=== PATIENT | male | born 1965 | race Caucasian/White ===

== ENCOUNTER 2018-03-22 11:06 | Emergency (ER) | payer MEDICARE, MEDICAID ==
[2018-03-22 11:28] VITALS: BP 97/59
[2018-03-22] MEDS ORDERED: Sodium Chloride 0.9% 1,000 ML IV ONE ×2 (12:28→14:18)
[2018-03-22] MEDS ORDERED: Ondansetron 4 MG/2 ML SDV IVPUSH ONE (12:28)
[2018-03-22] MEDS ORDERED: HYDROmorphone 1 MG/ML Syringe IVPUSH ONE (12:28)
[2018-03-22] MEDS ORDERED: Sodium Chloride 0.9% 10 ML Syringe FLUSH PRN ×2 (12:28→13:42)
--- NOTE | 2018-03-22 12:50 | EDM.PDOC ---
ED HPI GENERAL MEDICAL PROBLEM - General Chief Complaint: Back Pain or Injury Stated Complaint: BACK PAIN Time Seen by Provider: 03/22/18 12:00 Source of Information: Reports: Patient History Limitations: Reports: No Limitations - History of Present Illness INITIAL COMMENTS - FREE TEXT/NARRATIVE: 52-year-old male presents for evaluation treatment of back pain. Patient has had chronic back pain and problems. First surgery was done 13 or [address] Conway. Reports surgery to L4-L5 and L5-S1. He reports a days ago he had surgery Dr. Koch at [facility] in [place]. States that the extended the cage, understanding this is now involves L3-L4. He reports pain radiating into the right leg. States the pain is in his right groin, right hip and his right knee. He states he feels that his right leg is swollen. He did have the pain prior to surgery feels that it is worse since having the surgery. He was in the hospital for surgery from March 14 to March 17. He states he did notify staff of the leg pain but was informed that this was residual from his surgery. He denies any fevers, nausea, vomiting. He reports chills and sweats. He denies any urinary or stool incontinence. Back Pain Score (Numeric/FACES): 9 - Related Data Allergies Allergy/AdvReac Type Severity Reaction Status Date / Time No Known Allergies Allergy Verified 08/24/16 04:47 Home Meds: Home Meds Aspirin [Adult Low Dose Aspirin EC] 81 mg PO DAILY 11/18/15 [History] ClonazePAM [KlonoPIN] 2 mg PO DAILY 11/18/15 [History] HYDROmorphone [Dilaudid] 2 - 4 mg PO Q6H 11/18/15 [History] Lisinopril 20 mg PO DAILY 11/18/15 [History] Metoprolol Succinate [Toprol XL] 200 mg PO DAILY 11/18/15 [History] Mirtazapine [Remeron] 30 mg PO BEDTIME 11/18/15 [History] atorvaSTATin [Lipitor] 20 mg PO BEDTIME 11/18/15 [History] traZODone HCl [Trazodone HCl] 50 mg PO DAILY 11/18/15 [History] Allopurinol [Zyloprim] 300 mg PO DAILY 08/24/16 [History] Furosemide 40 mg PO DAILY 08/24/16 [History] Gabapentin [Neurontin] 800 mg PO BEDTIME 08/24/16 [History] Losartan Potassium 100 mg PO DAILY 08/24/16 [History] Omeprazole 20 mg PO BIDAC 08/24/16 [History] amLODIPine [Norvasc] 5 mg PO DAILY 08/24/16 [History] Orphenadrine [Norflex] 100 mg PO BID PRN #20 tab.er 03/22/18 [Rx] Past Medical History Cardiovascular History: Reports: CAD, High Cholesterol, Hypertension, SOB on Exertion Respiratory History: Reports: Other (See Below) Other Respiratory History: "fluid in the lungs" Gastrointestinal History: Reports: GERD Musculoskeletal History: Reports: Back Pain, Chronic Neurological History: Reports: Headaches, Chronic, Other (See Below) Psychiatric History: Reports: Anxiety, Depression Hematologic History: Reports: Blood Transfusion(s) - Infectious Disease History Infectious Disease History: Reports: Shingles - Past Surgical History Cardiovascular Surgical History: Reports: Coronary Artery Bypass Neurological Surgical History: Reports: Lumbar Spine Musculoskeletal Surgical History: Reports: Other (See Below) Other Musculoskeletal Surgeries/Procedures:: back surgery Social & Family History - Family History Cardiac: Reports: IA, Other (See Below) Other Cardiac Family History: states hx for mom and dad, and 2 brothers as well - Tobacco Use Smoking Status *Q: Former Smoker Years of Tobacco use: 31 Packs/Tins Daily: 0.1 Used Tobacco, but Quit: Yes Month/Year Tobacco Last Used: 1 week - Caffeine Use Caffeine Use: Reports: Coffee - Recreational Drug Use Recreational Drug Use: No - Living Situation & Occupation Living situation: Reports: Single Occupation: Unemployed ED ROS GENERAL - Review of Systems Review Of Systems: See Below Constitutional: Reports: Chills. Denies: Fever Respiratory: Denies: Shortness of Breath Cardiovascular: Denies: Chest Pain GI/Abdominal: Denies: Nausea, Stool Incontinence, Vomiting : Denies: Incontinence Musculoskeletal: Reports: Back Pain (low back pain ), Leg Pain (right leg pain) ED EXAM,LOWER BACK PAIN/INJURY - Physical Exam Exam: See Below Exam Limited By: No Limitations General Appearance: Alert, WD/WN, Moderate Distress, Obese, Other (laying on left side in position) Respiratory/Chest: No Respiratory Distress, Lungs Clear, Normal Breath Sounds Cardiovascular: Normal Peripheral Pulses, Regular Rate, Rhythm, No Murmur Back Exam: Normal Inspection, Decreased Range of Motion (deferred due to pain), Other (surgical incision closed with stables, no erythemat or drainage, minor amount of swelling and slight increased warmth to the superior portion of hte scar; scar extends from about t10 to the sacrum) Extremities: Normal Inspection. No: Jr's Sign Neurological: Alert, Normal Mood/Affect, Normal Dorsiflexion, Normal Plantar Flexion Psychiatric: Normal Affect, Normal Mood Skin Exam: Warm, Dry, Normal Color Course - Vital Signs Last Recorded V/S: Last Vital Signs Temp 95.2 F L 03/22/18 11:24 Pulse 94 03/22/18 11:24 Resp 20 03/22/18 11:24 BP 97/59 L 03/22/18 11:24 Pulse Ox 94 L 03/22/18 11:24 - Orders/Labs/Meds Labs: Laboratory Tests 03/22/18 03/22/18 Range/Units 12:51 12:51 WBC 7.20 (4.23-9.07) K/mm3 RBC 4.19 L (4.63-6.08) M/mm3 Hgb 12.1 L (13.7-17.5) gm/L Hct 37.2 L (40.1-51.0) % MCV 88.8 (79.0-92.2) fl MCH 28.9 (25.7-32.2) pg MCHC 32.5 (32.2-35.5) g/dl RDW Std Deviation 54.9 H (35.1-43.9) fL Plt Count 263 (163-337) K/mm3 MPV 11.0 (9.4-12.3) fl Neutrophils % (Manual) 61 H (40-60) % Band Neutrophils % 1 (0-10) % Lymphocytes % (Manual) 28 (20-40) % Atypical Lymphs % 0 % Monocytes % (Manual) 9 (2-10) % Eosinophils % (Manual) 1 (0.8-7.0) % Basophils % (Manual) 0 L (0.2-1.2) Platelet Estimate Adequate RBC Morph Comment Normal Sodium 139 (136-145) mEq/L Potassium 3.9 (3.5-5.1) mEq/L Chloride 104 (98-107) mEq/L Carbon Dioxide 22 (21-32) mEq/L Anion Gap 16.9 H (5-15) BUN 17 (7-18) mg/dL Creatinine 1.3 (0.7-1.3) mg/dL Est Cr Clr Drug Dosing 67.23 mL/min Estimated GFR (MDRD) 58 (>60) mL/min BUN/Creatinine Ratio 13.1 L (14-18) Glucose 108 H (74-106) mg/dL Calcium 9.0 (8.5-10.1) mg/dL Total Bilirubin 0.5 (0.2-1.0) mg/dL AST 35 (15-37) U/L ALT 58 (16-63) U/L Alkaline Phosphatase 132 H (46-116) U/L C-Reactive Protein 4.8 H* (<1.0) mg/dL Total Protein 6.9 (6.4-8.2) g/dl Albumin 3.3 L (3.4-5.0) g/dl Globulin 3.6 gm/dL Albumin/Globulin Ratio 0.9 L (1-2) Meds: Medications Discontinued Medications Generic Name Dose Route Start Last Admin Trade Name Freq PRN Reason Stop Dose Admin Hydromorphone HCl 2 mg 03/22/18 12:28 03/22/18 12:47 Dilaudid IVPUSH 03/22/18 12:29 1 mg ONETIME ONE Administration Sodium Chloride 1,000 mls @ 999 mls/hr 03/22/18 12:28 03/22/18 12:45 Normal Saline IV 03/22/18 13:28 999 mls/hr ONETIME ONE Administration Sodium Chloride 1,000 mls @ 999 mls/hr 03/22/18 14:18 03/22/18 14:28 Normal Saline IV 03/22/18 15:18 999 mls/hr ONETIME ONE Administration Iopamidol 125 ml 03/22/18 13:42 03/22/18 13:49 Isovue-300 (61%) IVPUSH 03/22/18 13:43 125 ml ONETIME ONE Administration Ondansetron HCl 4 mg 03/22/18 12:28 03/22/18 12:45 Zofran IVPUSH 03/22/18 12:29 4 mg ONETIME ONE Administration Sodium Chloride 10 ml 03/22/18 12:28 03/22/18 12:49 Saline Flush FLUSH 10 ml ASDIRECTED PRN Administration Keep Vein Open Sodium Chloride 10 ml 03/22/18 13:42 03/22/18 13:50 Saline Flush FLUSH 10 ml ONETIME PRN Administration IV FLUSH - Radiology Interpretation Free Text/Narrative:: CT lumbar spine Technique: Multiple axial sections were obtained from the mid T11 level inferiorly through the L5-S1 disc. Reconstructed coronal and sagittal images were obtained. Comparison: Prior MRI lumbar spine exam of 01/03/18. Findings: Trans-pedicle screws are identified bilaterally within L2-S1. Posterior disc appear preserved. Posterior laminectomies are seen at the levels of prior surgery. No abnormal subluxation is seen. No central canal stenosis or neural foraminal stenosis is seen. There is mild amount of soft tissue air within the posterior soft tissues which likely relates to previous surgery. Impression: 1. Transpedicle screws and posterior laminectomy at L2-3 through L5-S1. Transpedicle screw are seen within L2-S1. 2. No central canal stenosis or neural foraminal stenosis is seen. No discrete disc herniation is appreciated on this study. Right lower extremity deep venous ultrasound: Duplex and color flow imaging was obtained of the right common femoral, proximal greater saphenous, superficial femoral, popliteal, posterior tibial and peroneal veins. Left common femoral vein was also evaluated. Findings: Phasic flow not optimally seen with posterior tibial and peroneal veins but both these veins show normal compression and augmentation. Other deep veins show normal phasic flow, augmentation and compression. Impression: 1. No evidence of deep venous thrombosis within the right lower extremity or within the left common femoral vein. - Re-Assessments/Exams Free Text/Narrative Re-Assessment/Exam: 03/22/18 14:31 Checked on the patient. He is doing well. Reviewed the lab results with him. Blood pressures improved to the mid 100s systolic. We'll give a second bolus of fluids. Awaiting ultrasound and CT results. Doing well with IV Dilaudid. 1 mg initially was given; O2 sats dropped and he was given 1 L of oxygen via nasal cannula. Complaining of worsening pain so nursing staffcan go ahead and given a second milligram that was ordered. 03/22/18 15:[address] Ho. Recommended close follow-up with neurosurgery. Reviewed the imaging with the patient. Pain improved with 2 mg IV Dilaudid. We will discharge home at this time. Discharge instructions as documented. Departure - Departure Time of Disposition: 15:20 Disposition: Home, Self-Care 01 Condition: Fair Clinical Impression: Chronic back pain - Discharge Information *PRESCRIPTION DRUG MONITORING PROGRAM REVIEWED*: Yes *COPY OF PRESCRIPTION DRUG MONITORING REPORT IN PATIENT ELEANOR: No Prescriptions: Orphenadrine [Norflex] 100 mg PO BID PRN #20 tab.er PRN Reason: Muscle Spasm Instructions: Back Pain, Adult, [id number] Referrals: Martin Pratt MD [Primary Care Provider] - Joel Najera MD [Consulting Physician] - Forms: ED Department Discharge Additional Instructions: You were given medication the ER that can affect your ability to drive and operate machinery. Do not drive or operative machinery within 12 hours of taking narcotic pain medication. Recommend decreasing your losartan dose to do your low blood pressure today. Take half (50mg) of your 100 mg dose daily. May continue on your other medications as prescribed. make sure are drinking plenty of fluids. You may take Norflex 1 tab twice a day as needed for muscle pains and spasms. Continue on your Dilaudid you have at home as prescribed. If you continue to have significant pain recommend on Sunday contacting Dr. Padilla. For pain management recommend talking to your provider who is managing this for you. Please return to ER if your symptoms change or worsen.
[2018-03-22] MEDS ORDERED: Iopamidol 612 MG/ML 150 ML Bottle IVPUSH ONE (13:42)
--- NOTE | 2018-03-22 14:43 | US ---
Right lower extremity deep venous ultrasound: Duplex and color flow imaging was obtained of the right common femoral, proximal greater saphenous, superficial femoral, popliteal, posterior tibial and peroneal veins. Left common femoral vein was also evaluated. Findings: Phasic flow not optimally seen with posterior tibial and peroneal veins but both these veins show normal compression and augmentation. Other deep veins show normal phasic flow, augmentation and compression. Impression: 1. No evidence of deep venous thrombosis within the right lower extremity or within the left common femoral vein. Diagnostic code #1
--- NOTE | 2018-03-22 14:43 | CT ---
CT lumbar spine Technique: Multiple axial sections were obtained from the mid T11 level inferiorly through the L5-S1 disc. Reconstructed coronal and sagittal images were obtained. Comparison: Prior MRI lumbar spine exam of 01/03/18. Findings: Trans-pedicle screws are identified bilaterally within L2-S1. Posterior disc appear preserved. Posterior laminectomies are seen at the levels of prior surgery. No abnormal subluxation is seen. No central canal stenosis or neural foraminal stenosis is seen. There is mild amount of soft tissue air within the posterior soft tissues which likely relates to previous surgery. Impression: 1. Transpedicle screws and posterior laminectomy at L2-3 through L5-S1. Transpedicle screw are seen within L2-S1. 2. No central canal stenosis or neural foraminal stenosis is seen. No discrete disc herniation is appreciated on this study. Diagnostic code #2
== END 2018-03-22 15:35 | disposition home or self-care (01) ==
LOC: JD.ED 11:06
DX: G89.29 Other chronic pain (principal); M54.5 Low back pain; I10 Essential (primary) hypertension; E78.00 Pure hypercholesterolemia, unspecified; F41.9 Anxiety disorder, unspecified; E32.9 Disease of thymus, unspecified; Z79.82 Long term (current) use of aspirin; Z79.899 Other long term (current) drug therapy
CPT/HCPCS: 36415; 72132; 80053; 85007; 85027; 86140; 93971; 96361; 96374; 96375; 99284; J1170; J2405; J7040; J7050; Q9967; 99283